=== PATIENT | male | born 1990 | race Caucasian/White ===

== ENCOUNTER 2016-11-04 18:43 | Emergency (ER) | payer MEDICAID, OTHER ==
[2016-11-04 19:03] VITALS: TEMP 98.4
[2016-11-04] MEDS ORDERED: ceFAZolin 1 GM in NS 100 ML IV ONE (20:10)
[2016-11-04] MEDS ORDERED: fentaNYL 100 MCG/2 ML INJ IVP ONE (20:10)
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
[2016-11-04] MEDS ORDERED: CEPHALEXIN 500MG PREPACK#4 BTL TAKEHOME ONE (21:49)
[2016-11-04] MEDS ORDERED: OXYCODONE/APAP 5/325MG PREPACK#4 BTL TAKEHOME ONE (21:49)
[2016-11-04 22:11] VITALS: BP 121/66; PULSE 64; RESP 16; O2SAT 95
== END 2016-11-04 22:11 | disposition home or self-care (01) ==
PROC: 0HQKXZZ Repair Right Lower Leg Skin, External Approach (ICD-10-PCS; principal; 2016-11-04)
DX: S81.011A Laceration without foreign body, right knee, initial encounter (principal); V10.4XXA Pedal cycle driver injured in collision with pedestrian or animal in traffic accident, initial encounter; V18.0XXA Pedal cycle driver injured in noncollision transport accident in nontraffic accident, initial encounter; Y99.8 Other external cause status; Y93.89 Activity, other specified
CPT/HCPCS: 96374; J0690; J3010